=== PATIENT | male | born 1970 | race Caucasian/White ===

== ENCOUNTER 2017-01-23 10:32 | Emergency (ER) | payer OTHER ==
[2017-01-23 10:57] VITALS: BP 132/84; PULSE 90; RESP 20; TEMP 99; O2SAT 98
--- NOTE | 2017-01-23 11:48 | UCPHY ---
H & P Patient Type: Established Chief Complaint Nursing Narrative: flu like s/s cough and sinus congestion since Tuesday. productive brown sputum. No Flu immunization. HPI/ROS: CHIEF COMPLAINT: Cough History by patient HISTORY OF PRESENT ILLNESS: 46-year-old man presents complaining of cough, sinus congestion, fever and body aches which have been going on for a week. Patient states that earlier in the week his temperature was as high as 102. This is improved in general he is feeling somewhat better but he continues to have significant cough. He uses a CPAP at night for sleep apnea which she says makes it hard. He has tried taking DayQuil and NyQuil with minimal relief. He has no prior history of asthma. He denies any difficulty breathing. He does not smoke. REVIEW OF SYSTEMS: As in HPI, and all other systems reviewed and are negative - Personal History Current Tetanus/Diphtheria Vaccine: Unsure Current Tetanus Diphtheria and Acellular Pertussis (TDAP): Unsure - Medical/Surgical History Hx Asthma: No Hx Chronic Respiratory Disease: No Hx Diabetes: No Hx Cardiac Disease: No Hx Renal Disease: No Hx Cirrhosis: No Hx Alcoholism: No Hx HIV/AIDS: No Hx Splenectomy or Spleen Trauma: No Other PMH: GERD , high cholesterol. Depression - Family History Significant Family History: No pertinent family hx - Social History Smoking Status: Never smoked - Physical Exam Exam: General Appearance: Alert, well appearing, speaking full sentences. Eyes: Pupils equal and round no pallor or injection. ENT, Mouth: Mucous membranes moist. No stridor, no lymphadenopathy Respiratory: Normal, effort, There are no retractions, lungs are clear to auscultation. Positive end-expiratory wheeze with cough Cardiovascular: Regular rate and rhythm. Gastrointestinal: Abdomen is soft and nontender, no masses, bowel sounds normal. Neurological: Awake, alert and oriented x 3, no pronator drift, normal gait, no pronator drift Skin: Warm and dry, no rashes. Musculoskeletal: Neck is supple nontender. Extremities are symmetrical, full range of motion. Psychiatric: Patient has normal affect, there is no agitation. Constitutional: Initial Vital Signs Temperature (C) 37.2 C 01/23/17 10:54 Heart Rate 90 01/23/17 10:54 Respiratory Rate 20 01/23/17 10:54 Blood Pressure 132/84 H 01/23/17 10:54 O2 Sat (%) 98 01/23/17 10:54 O2 Delivery Mode Room Air Allergies/Adverse Reactions: No Known Allergies Allergy (Verified 01/23/17 10:52) Home Medications: Medication Instructions Recorded Albuterol [Proventil Inhaler HFA 1 - 2 puffs IH Q4H #1 mdi 01/23/17 (*)] Omeprazole 01/23/17 Paxil 01/23/17 Medical Decision Making ED Course/Re-evaluation: Patient presents with influenza like symptoms. There is no evidence of hypoxia or respiratory compromise or significant systemic toxicity. We discussed conservative measures and home care and return precautions. Departure - Departure Disposition: Home, Routine, Self-Care Clinical Impression: Influenza-like illness Condition: Good Instructions: Influenza (ED) Additional Instructions: You were seen by Dr. Caity Sheikh today. Return for any worsening or new concerns. Try using albuterol inhaler for cough as well as hot drinks with honey. Referrals: Radhames Kumari MD [Primary Care Provider] - As per Instructions Prescriptions: Albuterol [Proventil Inhaler HFA (*)] 1 - 2 puffs IH Q4H #1 mdi - PQRS PQRS Measurement: NA
== END 2017-01-23 11:49 | disposition home or self-care (01) ==
LOC: CED 10:32
DX: R05 Cough (principal); R09.81 Nasal congestion; R53.83 Other fatigue
CPT/HCPCS: 99214-PO; G0463-PO